=== PATIENT | female | born 1990 | race Caucasian/White ===

== ENCOUNTER 2020-03-09 00:26 | Inpatient (IN) ==
[2020-03-09] MEDS ORDERED: LACTATED RINGER'S 1,000 ML IV PRN (01:07)
[2020-03-09] MEDS ORDERED: PENICILLIN G POTASSIUM 3 MU in DEXTROSE 5% 100 ML IV PRN (01:07)
[2020-03-09] MEDS ORDERED: OXYTOCIN 30 UNITS/500 ML BAG IV PRN ×3 (01:07→13:29)
[2020-03-09] MEDS ORDERED: PENICILLIN G POTASSIUM 6 MU in DEXTROSE 5% 250 ML IV STA (01:19)
[2020-03-09 01:52] LABS: Hematocrit (blood only) 37.9 % (37-47); Hemoglobin 13.3 g/dL (12.0-16.0); Mean Corpuscular Hgb Conc 35.1 g/dL (32-36); Mean Corpuscular Volume 91.1 fL (80-100); Mean Platelet Volume 9.8 fL (7.4-10.4); Platelet Count 182 K/uL (130-400); RDW Coefficient of Variation 12.6 % (11.5-14.5); RDW Standard Deviation 41.5 fL (36.4-46.3); Red Blood Count 4.16 M/uL (4.2-5.4); White Blood Count 11.86 K/uL (4.8-10.8)
--- NOTE | 2020-03-09 07:08 | History & Physical Report ---
Date of Service March 09, 2020 Assessment & Plan (1) Supervision of normal intrauterine in multigravida: Patient prefers not to have a regional anesthetic at this stage her contractions have slowed down somewhat since arrival she was scheduled for induction anyway so I will start Pitocin estimated weight 7 to 8 pounds continue group B strep prophylaxis Admission and Anticipated Discharge Date Admission Date: March 09, 2020 History of Present Illness Primary Care Provider: NO PCP Patient had been scheduled for induction today arrived in early labor initially at 5 cm she contractions have decreased patient is group B strep positive uncomplicated 41 weeks this is her third baby 2 prior vaginal Allergies Allergy/AdvReac Type Severity Reaction Status Date / Time cephalexin [From Keflex] Allergy Mild Hives Verified 03/09/20 01:12 Home Medications Home Medications Medication Instructions Recorded Confirmed Type prenat.vits,ami,kkh-yxkb-nyaah 1 tab PO DAILY 09/15/19 03/09/20 History breast pump #1 ea 01/29/20 03/08/20 Rx Patient History Medical History History of chicken pox Ureteropelvic junction (UPJ) obstruction Family History (Updated 09/15/19 @ 10:25 by Tonia Tang) Father Nil disease Brother UPJ obstruction, congenital Congenital heart defect Sister UPJ obstruction, congenital Social History (Updated 09/15/19 @ 10:05 by Tonia Tang) Smoking Status: Never smoker Hx Alcohol Use: No Hx Substance Use: No Preferred Language: Upper Sorbian Communication Ability: Effective Beliefs That Will Affect Care: None marital status: marital status details: Eliel Shah (27) [phone] Current Living Situation: Spouse and Family Current Living Situation Comment: lives with spouse, 2 daughter, no pets current occupational status: employed current occupation: [employer] teacher Other Information That Helps Us Care for You: No Feels Safe at Home: Yes Safety Concerns: Feels Safe At This Time Physical Exam Constitutional: WD/WN, vitals as above Respiratory: normal respiratory effort, lungs clear to auscultation Cardiovascular: RRR, no murmur, no edema Genitourinary: OB Exam Abdomen: + vertex Manual OB Exam: + cervical dilation 5 cm, + cervical effacement 90% and + station -1 OB Exam Monitor Tracing: + external FHT monitor used and + category I Results & Data ([facility]) Vital Signs (Past 12 Hours) Vital Signs Temp Pulse Resp BP 03/09/20 07:01 85 135/71 03/09/20 04:25 84 121/64 03/09/20 04:24 98.4 F 18 03/09/20 02:45 100.2 F H 18 03/09/20 00:47 98.4 F 18 03/09/20 00:41 81 121/64 Coding Level of Care Code None Diagnoses Supervision of normal intrauterine in multigravida Z34.80
--- NOTE | 2020-03-09 09:32 | Labor Progress Brief Note ---
Date of Service March 09, 2020 Subjective Breathing with contractions. Feeling some pressure. Assessment & Plan (1) Normal labor: Admission and Anticipated Discharge Date Admission Date: March 09, 2020 continue current management. fetus category one. anticipate . Physical Exam Constitutional: WD/WN, vitals as above Psychiatric: A+Ox3, euthymic affect Genitourinary: cx--8-9/100/-1-0 toco--q2-4min efm--135 with mod variability, accels to 150s, no decels attempt at rom--cannot appreciate a bag. Results & Data ([facility]) Vital Signs (Past 12 Hours) Vital Signs Temp Pulse Resp BP 03/09/20 09:03 68 121/61 03/09/20 09:00 36.8 C 18 03/09/20 08:31 64 128/66 03/09/20 08:02 72 119/70 03/09/20 07:30 72 18 136/66 03/09/20 07:01 85 135/71 03/09/20 07:00 37.1 C 85 18 135/71 03/09/20 04:25 84 121/64 03/09/20 04:24 36.9 C 18 03/09/20 02:45 37.9 C H 18 03/09/20 00:47 36.9 C 18 03/09/20 00:41 81 121/64 Coding Level of Care Code None Diagnoses Normal labor O80; Z37.9
[2020-03-09] MEDS ORDERED: LIDOCAINE HCL 1% 20 ML VIAL ONE (10:03)
[2020-03-09] MEDS ORDERED: ACETAMINOPHEN 325 MG TAB PO PRN (10:18)
[2020-03-09] MEDS ORDERED: oxyCODONE/ACETAMINOPHEN 5mg/325mg TAB PO PRN (10:18)
--- NOTE | 2020-03-09 10:22 | Delivery Summary ---
Vaginal Delivery Summary Date of Service March 09, 2020 Vaginal Delivery Summary Pre-operative Diagnosis: at 41 weeks active labor srom Post-operative Diagnosis: same Procedure: pitocin augmentation second degree laceration with repair cord blood collected for public donation EBL: 350cc Anesthesia: local infiltration of the perineum with 1% lidocaine Procedure: The patient pushed for 1 contraction to deliver a viable female infant in doa position. The nose and mouth were bulb suctioned on the perineum and the rest of the was then delivered without difficulty. The baby was vigorous. The nose and mouth were again bulb suctioned and the was placed in the maternal abdomen for drying and attention. Cord was clamped and cut and then cord blood collected for donation. Placenta delivered spontaneous, intact with a three vessel cord. Cervix/sulci/rectum were intact. A second degree perineal laceration was repaired in the normal standard fashion. Hemostasis obtained with dilute pitocin and fundal massage. Apgars were 8/9. Mother and baby doing well at the end of the delivery. [facility] Vaginal Delivery Charge Vaginal Delivery Codes: 10143 global code for the antepartum, delivery, and post-
[2020-03-09] MEDS ORDERED: SUPERCREAM 0.870% 15 GM JAR EXT PRN (13:29)
[2020-03-09] MEDS ORDERED: BENZOCAINE 20% AER SPR 82.5 GM CAN EXT PRN (13:29)
[2020-03-09] MEDS ORDERED: HYDROCORTISONE ACETATE 25 MG SUPP PR PRN (13:29)
[2020-03-09] MEDS ORDERED: DIPHTHERIA/TETANUS/PERTUSSIS 0.5 ML SYR/VIAL IM ONE (13:29)
[2020-03-09] MEDS: IBUPROFEN 600 MG TAB PO PRN (14:43)
[2020-03-09] MEDS: DOCUSATE SODIUM 100 MG CAP PO SCH (20:34)
[2020-03-10] MEDS: IBUPROFEN 600 MG TAB PO PRN (01:13)
[2020-03-10 06:11] LABS: Hematocrit (blood only) 32.7 % (37-47); Hemoglobin 11.1 g/dL (12.0-16.0)
--- NOTE | 2020-03-10 06:38 | Obstetrical Progress Note ---
Date of Service <Sara Diana Roth - Last Filed: 03/10/20 07:06> March 10, 2020 Assessment & Plan <Sara Diana Roth DO - Last Filed: 03/10/20 07:06> (1) state: PPD #1 s/p , now - PNL: Rh negative, GBS positive, COVID neg - Plan for patient to receive Rhogam prior to discharge if baby is Rh neg. - Feels well today. Eating well, voiding well, ambulating well. - Pain well controlled with ibuprofen 600mg Q4H PRN - Routine care -- OOB, ambulation, diet progression as tolerated - After discharge will have 6 week follow-up with Dr. Weathers. - Plan for d/c home later today. Subjective <Sara MunozJam Roth - Last Filed: 03/10/20 07:06> Brenda Shah is a 29 y/o female who is PPD #1 following spontaneous vaginal delivery at 41 weeks. She reports feeling well overall this morning. Minimal abdominal cramping and 2/10 pain that she reports is only present while . Otherwise, reports 0/10 pain. Voiding without dysuria. Tolerating meals overnight without difficulty. Patient has been able to ambulate some. She is passing gas but has not yet had a bowel movement. Has persistent lochia with some improvement this morning. Currently . Patient without questions or concerns at this time. She does desire d/c home today. Review of Systems Denies fever or chills. Denies shortness of breath or cough. Denies chest pain. Denies breast pain. Denies dysuria. Denies leg pain or leg swelling. Denies headache or changes in vision. Physical Exam <Sara Roth DO - Last Filed: 03/10/20 07:06> General: Alert, oriented. No acute distress. Cardiac: Regular rate and rhythm. No murmurs. Respiratory: Clear to auscultation bilaterally a/p, no wheezes/rales/rhonchi. No increased work of breathing. Symmetrical chest rise. No respiratory distress. Abdomen: Soft, nontender, nondistended. Bowel sounds present. Uterus: Uterine fundus firm, palpable at umbilicus. Lower Extremities: No lower extremity edema or swelling. No deep calf pain. Estelita's negative bilaterally. Results & Data ([facility]) <Sara Roth DO - Last Filed: 03/10/20 07:06> Vital Signs (Past 12 Hours) Vital Signs Temp Pulse Resp BP 03/10/20 04:35 36.5 C 75 16 101/68 03/09/20 23:55 36.9 C 71 18 101/68 03/09/20 21:00 36.7 C 87 16 102/68 Laboratory Results 03/10/20 03/10/20 Range/Units 05:45 05:45 Hgb 11.1 L (12.0-16.0) g/dL Hct 32.7 L (37-47) % Blood Type Pending Antibody Screen Pending Screen Pending <Kacie Weathers MD, FACOG - Last Filed: 03/10/20 07:18> Co-Signing Physician Notes Resident Physician Supervision Note: I interviewed and examined the patient. Discussed with Dr. Roth and agree with findings and plan as documented in the note. Any exceptions or clarifications are listed here: Doing well. Desires d/c today. Instructions given. Documented By: Kacie Weathers MD, FACOG Resident Activity Tracking <Sara Roth DO - Last Filed: 03/10/20 07:06> Resident Involvement: Resident Care Provided Care Provided: OB Delivery
[2020-03-10] MEDS ORDERED: BENZOCAINE 20% AER SPR 82.5 GM CAN EXT PRN (07:59)
[2020-03-10] MEDS ORDERED: PRENATAL VITAMIN 1 TAB PO SCH (08:00)
[2020-03-10] MEDS: DOCUSATE SODIUM 100 MG CAP PO SCH (08:09)
[2020-03-10] MEDS ORDERED: bisacodyL 5 MG TABEC PO SCH (20:00)
[2020-03-11] MEDS ORDERED: bisacodyL 10 MG SUPP PR PRN (08:00)
--- NOTE | 2020-03-22 11:37 | Coding Query ---
CODING QUERY To promote full compliance with coding requirements relating to patient care, provider participation is requested in all cases of aerospace physiological technician uncertainty. Please assist us with the question(s) below: Coding Question(s): The Progress Note on 03/10/20 documents, " PNL: Rh negative, GBS positive, COVID neg - Plan for patient to receive Rhogam prior to discharge if baby is Rh neg". It is not clear if patient was treated for, or if there was concern for RH (factor) incompatibility, immunization or sensitization. Please specify below. ( ) RH (factor) incompatibility, immunization or sensitization ( ) NO RH (factor) incompatibility, immunization or sensitization ( ) Other: Please specify__I have no idea if she received rhogam. It does not appear to be administered in her orders. I cannot access the babies chart to see what the babies blood type is because I don't know the babies name and it is not under baby [facility] any longer. It would be best to look in the babies chart to see if Rh neg. If so, then she did not receive rhogam. Physician's Response(s): Thank you Sera Jackson Principal Diagnosis: "that condition established after study, to be chiefly responsible for occasioning the admission of the patient to the hospital for care." Co-Existing Principal Diagnosis: "when two or more diagnoses equally meet the criteria for principal diagnosis as determined by the circumstances of admission, diagnostic work up, and/or therapy provided, and the Alphabetic Index, Tabular List, or another coding guideline does not provide sequencing direction, any one of the diagnoses may be sequenced first." "When the physician has documented what appears to be a current diagnosis in the body of the record, but has not included the diagnosis in the final diagnostic statement, the physician should be asked whether the diagnosis should be added." ([facility] 2 QTR90. p3-4) THAIS
== END 2020-03-10 11:12 | disposition home or self-care (01) | DRG 807 ==
LOC: 4S1 00:26 → 4S2 13:20